=== PATIENT | female | born 1995 | race Caucasian/White ===

== ENCOUNTER 2022-01-22 09:59 | Outpatient (REF) | payer MEDICAID, SELFPAY ==
--- NOTE | ~2022-01-22 | XR_ITS ---
EXAMINATION: XR SCOLIOSIS CLINICAL INFORMATION: Dorsalgia. Scoliosis. COMPARISON: None TECHNIQUE: A single view of the thoracolumbar spine and an upright view were obtained. FINDINGS: The SI joints are symmetrical and normal. No lytic or sclerotic process is seen. There is a mild levoscoliosis at the thoracolumbar junction centered at the T12 vertebra with a [place] angle of 6 degrees centered at the T12 vertebra. The vertebral heights, alignment and disc heights are normal. No visible acute fracture, dislocation or subluxation is seen. The paravertebral soft tissues are normal. XR/XR scoliosis 1V IMPRESSION: Mild levoscoliosis with a [place] angle of 6 degrees centered at the T12 vertebra. No vertebral abnormality is seen.
== END 2022-01-22 10:00 | disposition home or self-care (01) ==
LOC: HO.XRAY 09:59
PROVIDERS: PCP General Practice; Visit Provider General Practice
DX: M54.9 Dorsalgia, unspecified (principal)
CPT/HCPCS: 72081